=== PATIENT | male | born 1980 | race Caucasian/White ===

== ENCOUNTER → 2018-12-23 | Day surgery (SDC) | payer MEDICARE, MEDICAID ==
[~2018-12-23] MED LIST: Lactated Ringers 1,000 ML IV SCH; Propofol 200 MG/20 ML SDV IV ONE
--- NOTE | 2018-12-23 14:46 | OR ---
DATE OF OPERATION: 12/23/2018 PREOPERATIVE DIAGNOSIS: ALTERED BOWEL HABITS. POSTOPERATIVE DIAGNOSIS: ALTERED BOWEL HABITS. SURGEON: Ronni Gibson MD PROCEDURE: FULL-LENGTH COLONOSCOPY WITH SNARE POLYPECTOMY X1, RANDOM BIOPSIES X5. ANESTHESIA: MAC via SHRIMP TRAWLER. COMPLICATIONS: None. SPECIMEN: 1. Random colon biopsies x5. 2. Small sessile polyps, hepatic flexure. FINDINGS: 1. Full-length colonoscopy. 2. Small tubular adenoma, hepatic flexure. 3. No identifiable etiology of patient's diarrhea. 4. Minimal sigmoid diverticulosis. RECOMMENDATIONS: Routine colonoscopy in 5 years given polyp removal. Await pathology reports on random biopsies for further treatment on his altered bowels. INDICATIONS: The patient has been having ongoing issues with diarrhea. We elected to proceed with colonoscopy. DESCRIPTION OF PROCEDURE: The patient was prepped and draped, placed in the left lateral decubitus position. A lubricated Olympus colonoscope was inserted and easily advanced to the cecum. We were able to directly visualize the ileocecal valve and appendiceal orifice. The bowel prep was adequate. There was a lot of liquid stool, but easily suctioned. Upon withdrawal, the cecum and ascending colon appeared benign. At the hepatic flexure, the patient had 1 small tubular adenoma removed in its entirety with a snare and came out with a snare through the scope. The rest of the transverse and descending colons were benign. The patient did have a few scattered diverticula in the sigmoid area, very minimal in any severity, no signs of colitis with this. There were no vascular abnormalities or other polyps, masses, or lesions. Rectal vault was unremarkable. Retroflexion of the scope in the rectum was benign as well. I did do random biopsies throughout the colon looking for any microscopic colitis including the ascending colon, hepatic and splenic flexure, sigmoid and rectosigmoid regions. Air was suctioned, the scope was removed without complication. FLORY/ARABELLA /[id number]
== END ==
LOC: CC.SDS 09:51
PROVIDERS: ATTEND Family Medicine
DX: R19.7 Diarrhea, unspecified (principal); D12.3 Benign neoplasm of transverse colon; K57.30 Diverticulosis of large intestine without perforation or abscess without bleeding; E78.5 Hyperlipidemia, unspecified; Z88.2 Allergy status to sulfonamides
CPT/HCPCS: 45385; J2704; J7120